=== PATIENT | male | born 1965 | race Caucasian/White ===

== ENCOUNTER 2016-07-03 12:20 | Day surgery (SDC) | payer OTHER ==
[~2016-07-03] VITALS: Ht 177.8 cm; Wt 118.8 kg
[2016-07-03] VITALS (7 sets, daily range): BP systolic 115–138; BP diastolic 67–76; PULSE 48–67; TEMP 97.7–98.2
[~2016-07-03 12:20] MED LIST: CEPHALEXIN500 M1 PO; FLOMAX 0.40.4 MG/CAP PO; GOOD SENSE ASP325 M1 PO; INDOCIN50 MG PO; LEVAQUIN 5500 MG/TA1 PO; LIPITOR 40MG TA40 MG PO; LISINOPRIL2.5 MG PO; LOPRESSOR 225 MG/TAB PO; MOTRIN800 MG PO; NEXIUM 20MG20 MG PO; NITROQUICK0.4 MG SL; OMEGA 31000 MG PO; PERCOCET 325 MG1 TA2 PO; PLAVIX 75MG TAB75 MG PO; PRINIVIL5 MG PO; TOPROL XL 25MG25 MG PO; TRICOR 48MG48 MG PO
[2016-07-03] MEDS ORDERED: TIAZAC120 MG PO (12:51)
[2016-07-03] MEDS ORDERED: ASPIRIN E.C. 8181 MG PO (12:51)
[2016-07-03] MEDS ORDERED: CEPHALEXIN500 M1 PO (15:35)
== END 2016-07-03 16:00 | disposition home or self-care (01) ==
LOC: COL.RAD 12:20
DX: Z45.010 Encounter for checking and testing of cardiac pacemaker pulse generator [battery] (principal); I48.0 Paroxysmal atrial fibrillation; I25.10 Atherosclerotic heart disease of native coronary artery without angina pectoris; Z79.82 Long term (current) use of aspirin; Z79.899 Other long term (current) drug therapy; E78.5 Hyperlipidemia, unspecified; Z87.891 Personal history of nicotine dependence
CPT/HCPCS: C1764; J0690; J2250; J3010; J7040; J7050

== ENCOUNTER 2016-09-28 10:14 | Day surgery (SDC) | payer OTHER ==
[~2016-09-28] VITALS: Ht 177.8 cm; Wt 121.1 kg
[~2016-09-28 10:14] MED LIST changes: +ASPIRIN E.C. 8181 MG PO; +TIAZAC120 MG PO
[2016-09-28 12:45] VITALS: BP 124/81; PULSE 82
[2016-09-28 13:00] VITALS: BP 119/76; PULSE 76
[2016-09-28 13:15] VITALS: BP 127/88; PULSE 76
[2016-09-28 14:59] VITALS: BP 146/89; PULSE 75; TEMP 97.5
== END 2016-09-28 13:35 | disposition home or self-care (01) ==
LOC: SDCO 10:14
DX: Z12.11 Encounter for screening for malignant neoplasm of colon (principal); Z86.010 Personal history of colon polyps; M19.90 Unspecified osteoarthritis, unspecified site; K21.9 Gastro-esophageal reflux disease without esophagitis; M10.9 Gout, unspecified; K58.9 Irritable bowel syndrome, unspecified
CPT/HCPCS: J2250; J3010; J7030

== ENCOUNTER → 2018-01-09 | Outpatient (CLI) | payer OTHER | LOC: COL.RAD 09:51 | DX: Z02.71 Encounter for disability determination (principal); M51.36 Other intervertebral disc degeneration, lumbar region; M48.56XA Collapsed vertebra, not elsewhere classified, lumbar region, initial encounter for fracture ==

== ENCOUNTER → 2018-05-05 | Outpatient (CLI) | payer OTHER | LOC: COL.RAD 09:24 | DX: Z02.71 Encounter for disability determination (principal); M70.72 Other bursitis of hip, left hip; M50.30 Other cervical disc degeneration, unspecified cervical region ==